=== PATIENT | female | born 1975 | race African-American/Black ===

== ENCOUNTER 2023-12-06 07:39 | Day surgery (SDC) | payer BC ==
[2023-12-02 10:21] VITALS: BMI 23.3
[2023-12-06] MEDS ORDERED: LIDOCAINE HCL/PF 2% SDV 5ML VIAL ONE (07:43)
[2023-12-06] MEDS ORDERED: PROPOFOL 160 ML ONE (07:43)
[2023-12-06 08:02] VITALS: RESP 18
[2023-12-06 08:47] VITALS: TEMP 97.5
[2023-12-06 09:12] VITALS: PULSE 62
[2023-12-06 10:13] VITALS: BP 108/59
== END 2023-12-06 10:15 | disposition home or self-care (01) ==
LOC: FASU-ENDO 07:39
PROVIDERS: ATTEND Internal Medicine Gastroenterology
PROC: 0DJD8ZZ Inspection of Lower Intestinal Tract, Via Natural or Artificial Opening Endoscopic (ICD-10-PCS; principal; 2023-12-06 08:17)
DX: Z12.11 Encounter for screening for malignant neoplasm of colon (principal); Z86.010 Personal history of colon polyps
CPT/HCPCS: 81025